=== PATIENT | female | born 2000 | race Caucasian/White ===

== ENCOUNTER 2021-05-17 00:36 | Emergency (ER) | payer OTHER ==
[~2021-05-17] VITALS: Ht 165.1 cm; Wt 89.0 kg
[2021-05-17 00:37] VITALS: BP 190/119
[2021-05-17 01:12] LABS: BASOPHILS % 0.5 % (0.0-2.0); EOSINOPHILS % 1.5 % (0.0-5.0); HEMATOCRIT. 42.5 % (36.0-48.0); HEMOGLOBIN. 14.2 g/dL (12.0-16.0); LYMPHOCYTES % 36.4 % (20.0-50.0); MEAN CORPUSCULAR HEMOGLOBIN 26.5 pg (28.0-32.0); MEAN CORPUSCULAR VOLUME 79.4 fL (81.0-99.0); MEAN PLATELET VOLUME 9.6 fl (7.4-10.4); MONOCYTES % 8.1 % (2.0-8.0); NEUTROPHILS % 53.5 % (40.0-76.0); PLATELET 249 x1000/uL (130-400); RED BLOOD CELL COUNT 5.35 mill/uL (4.2-5.4); RED CELL DISTRIBUTION WIDTH 13.9 % (11.6-14.6)
[2021-05-17 01:19] LABS: CHLORIDE 106 mEq/L (98-107)
[2021-05-17] MEDS ORDERED: AMLODIPINE 5MG TABLET PO ONE (03:00)
== END 2021-05-17 05:16 | disposition left against medical advice (07) ==
LOC: ER 00:36
DX: Z53.21 Procedure and treatment not carried out due to patient leaving prior to being seen by health care provider (principal); R07.9 Chest pain, unspecified
CPT/HCPCS: 36415; 71045; 80053; 83880; 85025; 93005

== ENCOUNTER 2021-11-08 11:52 | Emergency (ER) | payer OTHER ==
[~2021-11-08] VITALS: Ht 160 cm; Wt 90.6 kg
[2021-11-08 12:24] VITALS: BP 197/113
== END 2021-11-08 14:28 | disposition left against medical advice (07) ==
LOC: ER 11:52
DX: Z53.21 Procedure and treatment not carried out due to patient leaving prior to being seen by health care provider (principal); M79.602 Pain in left arm
CPT/HCPCS: 93005